=== PATIENT | male | born 1985 | race Caucasian/White ===

== ENCOUNTER 2020-06-17 07:58 | Emergency (ER) | payer BC, MEDICAID, OTHER ==
[2020-06-17] MEDS ORDERED: diphenhydrAMINE 50 MG/ML SDV IM ONE (08:05)
--- NOTE | 2020-06-17 08:40 | EDM.PDOC ---
ED HPI GENERAL MEDICAL PROBLEM - General Stated Complaint: HIVES Time Seen by Provider: 06/17/20 08:11 Source of Information: Reports: Patient History Limitations: Reports: No Limitations - History of Present Illness INITIAL COMMENTS - FREE TEXT/NARRATIVE: Pt presents with hives Woke up this AM with them No known exposures No SOB No difficulty swallowing Onset: Today, Sudden Duration: Hour(s):, Getting Worse Location: Reports: Generalized - Related Data Allergies Allergy/AdvReac Type Severity Reaction Status Date / Time No Known Allergies Allergy Verified 02/04/16 11:48 Home Meds: Home Meds . [No Known Home Meds] 02/04/16 [History] Past Medical History - Past Health History Medical/Surgical History: Denies Medical/Surgical History Social & Family History - Family History Family Medical History: Unobtainable - Caffeine Use Caffeine Use: Reports: Coffee, Soda - Living Situation & Occupation Living situation: Reports: with Significant Other Occupation: Employed ED ROS GENERAL - Review of Systems Review Of Systems: See Below HEENT: Reports: No Symptoms Respiratory: Reports: No Symptoms Cardiovascular: Reports: No Symptoms GI/Abdominal: Reports: No Symptoms Skin: Reports: Urticaria ED EXAM, GENERAL - Physical Exam Exam: See Below Exam Limited By: No Limitations General Appearance: Alert, WD/WN, Mild Distress Nose: Normal Inspection Throat/Mouth: Normal Oropharynx Neck: Supple Respiratory/Chest: Lungs Clear Cardiovascular: Regular Rate, Rhythm GI/Abdominal: Soft, Non-Tender Extremities: Normal Inspection Neurological: Alert, Oriented Skin Exam: Other (Urticaria throughout) Course - Orders/Labs/Meds Meds: Medications Discontinued Medications Generic Name Dose Route Start Last Admin Trade Name Sara PRN Reason Stop Dose Admin Diphenhydramine HCl 50 mg 06/17/20 08:05 06/17/20 08:12 Benadryl IM 06/17/20 08:06 50 mg ONETIME ONE Administration - Re-Assessments/Exams Free Text/Narrative Re-Assessment/Exam: 06/17/20 08:39 Pt given Benadryl 50 mg IM in ER with much improved symptoms Departure - Departure Time of Disposition: 08:40 Disposition: Home, Self-Care 01 Clinical Impression: Urticaria - Discharge Information *PRESCRIPTION DRUG MONITORING PROGRAM REVIEWED*: Not Applicable *COPY OF PRESCRIPTION DRUG MONITORING REPORT IN PATIENT PHILL: Not Applicable Instructions: Hives Forms: ED Return to Work/School Form Additional Instructions: Follow up in clinic
[2020-06-17 09:33] VITALS: BP 124/78; PULSE 66
== END 2020-06-17 08:45 | disposition home or self-care (01) ==
LOC: VM.ED 07:58
DX: L50.9 Urticaria, unspecified (principal)
CPT/HCPCS: 96372; 99282; 99283; J1200

== ENCOUNTER 2020-06-18 21:09 | Emergency (ER) | payer MEDICAID ==
--- NOTE | 2020-06-18 22:15 | EDM.PDOC ---
ED HPI GENERAL MEDICAL PROBLEM - General Stated Complaint: RASH ALL OVER BODY Time Seen by Provider: 06/18/20 21:09 Source of Information: Reports: Patient History Limitations: Reports: No Limitations - History of Present Illness INITIAL COMMENTS - FREE TEXT/NARRATIVE: Patient comes emergency department today for the second day in a row with complaints of a rash on his arms legs and feet. This patient was seen yesterday and was given Benadryl for possible allergic reaction. This patient for the past 3 days has had a very very itchy irritated rash on his legs abdomen and his extremities. He did recently receive a new bed at home although he stated a family member's house over the weekend and about 24 hours later he developed this very irritating itchy rash. He has no difficulty breathing. The Benadryl helps with the itching but the rash is not getting any better. NO COVID exposure no COVID symptoms. - Related Data Allergies Allergy/AdvReac Type Severity Reaction Status Date / Time No Known Allergies Allergy Verified 06/17/20 08:56 Home Meds: Home Meds Triamcinolone Acetonide [Triamcinolone Acetonide 0.1% Oint] 15 gm .XX QID PRN #1 tube 06/18/20 [Rx] hydrOXYzine HCL [hydrOXYzine] 25 mg PO Q6H PRN #12 tab 06/18/20 [Rx] Past Medical History - Past Health History Medical/Surgical History: Denies Medical/Surgical History Social & Family History - Family History Family Medical History: Unobtainable - Caffeine Use Caffeine Use: Reports: Coffee, Soda - Living Situation & Occupation Living situation: Reports: with Significant Other Occupation: Employed ED ROS GENERAL - Review of Systems Review Of Systems: Comprehensive ROS is negative, except as noted in HPI. ED EXAM, SKIN/RASH Exam: See Below Exam Limited By: No Limitations General Appearance: Alert, WD/WN, No Apparent Distress Throat/Mouth: Normal Inspection, Normal Oropharynx, No Airway Compromise Head: Atraumatic, Normocephalic Neck: Normal Inspection Respiratory/Chest: No Respiratory Distress, Lungs Clear, Normal Breath Sounds, Chest Non-Tender Cardiovascular: Normal Peripheral Pulses, Regular Rate, Rhythm Peripheral Pulses: 2+: Radial (L), Radial (R), Posterior Tibial (L), Posterior Tibial (R), Dorsalis Pedis (L), Dorsalis Pedis (R) GI/Abdominal: Normal Bowel Sounds, Soft, Non-Tender, Other (see skin description) (Male) Exam: Deferred Rectal (Males) Exam: Deferred Back Exam: No: Normal Inspection (see skin description) Extremities: Normal Inspection (see skin description otherwise normal. ) Neurological: Alert, Oriented, No Motor/Sensory Deficits Psychiatric: Normal Affect Skin: Rash (The patient has individual papules with central crusting and some excoriation on his distal forearms his distal extremities and on his abdomen. On his abdomen there is a perfect line just above where the belt line would be the rash does not extend under the belt line. There is no hives or urticaria. There is no secondary infection. They are nonconfluence and individualized with central crusting consistent with some type of insect bite.) Characteristics: Papular Course - Orders/Labs/Meds Meds: Medications Discontinued Medications Generic Name Dose Route Start Last Admin Trade Name Freq PRN Reason Stop Dose Admin Hydroxyzine HCl 50 mg 06/18/20 22:16 Atarax PO 06/18/20 22:17 ONETIME ONE - Re-Assessments/Exams Free Text/Narrative Re-Assessment/Exam: 06/18/20 22:38 This really does not appear to be any allergic type reaction. There is no. These are nonconfluent papules with central crusting consistent with a bite. And with the specific line along the abdomen where the close were this is more consistent for bedbugs. We will give him some hydroxyzine as well as some triamcinolone cream. He is comfortable with this plan his questions were answered. Departure - Departure Time of Disposition: 21:10 Disposition: Home, Self-Care 01 Clinical Impression: Bed bug bite Qualifiers: Encounter type: initial encounter Qualified Code(s): W57.XXXA - Bitten or stung by nonvenomous insect and other nonvenomous arthropods, initial encounter - Discharge Information Instructions: Insect Bite, Adult, [id number] Additional Instructions: Hydroxyzine 50mg every 6-8hrs as needed for itching. RX to [facility]. Caution sedation Triamcinolone cream. 0.1% apply 4 times a day as needed for itching Discontinue at shortest time able. Rx to [facility]. Return to the ED if new or worsening symptoms. Follow up with PCP if any concerns. - Assessment/Plan Assessment:: Bedbug bites. NO secondary infection. Plan: Hydroxyzine 50mg every 6-8hrs as needed for itching. RX to [facility]. Caution sedation Triamcinolone cream. 0.1% apply 4 times a day as needed for itching Discontinue at shortest time able. Rx to [facility]. Return to the ED if new or worsening symptoms. Follow up with PCP if any concerns.
[2020-06-18] MEDS ORDERED: hydrOXYzine HCl 25 MG Tab PO ONE (22:16)
[2020-06-19 06:21] VITALS: BP 122/71; PULSE 70
== END 2020-06-18 22:29 | disposition home or self-care (01) ==
LOC: VM.ED 21:09
DX: S50.862A Insect bite (nonvenomous) of left forearm, initial encounter (principal); S50.861A Insect bite (nonvenomous) of right forearm, initial encounter; S30.861A Insect bite (nonvenomous) of abdominal wall, initial encounter; W57.XXXA Bitten or stung by nonvenomous insect and other nonvenomous arthropods, initial encounter
CPT/HCPCS: 99282; 99283; A9270-GY

== ENCOUNTER 2020-08-19 14:59 | Emergency (ER) | payer MEDICAID, OTHER ==
[2020-08-19] MEDS ORDERED: Orphenadrine 60 MG/2 ML Inj IM ONE (15:19)
[2020-08-19] MEDS ORDERED: Ketorolac 30 MG/ML SDV IM ONE (15:20)
[2020-08-19 16:06] VITALS: BP 112/68; PULSE 54
--- NOTE | 2020-08-19 20:37 | EDM.PDOC ---
ED HPI GENERAL MEDICAL PROBLEM - General Chief Complaint: Back Pain or Injury Stated Complaint: BACK PAIN Time Seen by Provider: 08/19/20 15:24 Source of Information: Reports: Patient History Limitations: Reports: No Limitations - History of Present Illness INITIAL COMMENTS - FREE TEXT/NARRATIVE: Pt. presents to ER with complaints of severe lower abdominal pain. Denies any trauma to the area. No numbness/tingling in extremities. He denies any saddle anesthesia or numbness/tingling to buttocks. He states that he has had problems with intermittent low back pain, but states that today the discomfort is much worse. Pt. denies any fever or chills. Denies recent trauma. Onset: Today Location: Reports: Back Severity: Severe Bilateral Posterior Back Pain Score (Numeric/FACES): 10 - Related Data Allergies Allergy/AdvReac Type Severity Reaction Status Date / Time No Known Allergies Allergy Verified 08/19/20 15:20 Home Meds: Home Meds Triamcinolone Acetonide [Triamcinolone Acetonide 0.1% Oint] 15 gm .XX QID PRN #1 tube 06/18/20 [Rx] hydrOXYzine HCL [hydrOXYzine] 25 mg PO Q6H PRN #12 tab 06/18/20 [Rx] Past Medical History - Past Health History Medical/Surgical History: Denies Medical/Surgical History - Past Surgical History GI Surgical History: Reports: Appendectomy Social & Family History - Family History Family Medical History: Unobtainable - Tobacco Use Tobacco Use Status *Q: Current Every Day Tobacco User Years of Tobacco use: 10 Packs/Tins Daily: 0.5 - Caffeine Use Caffeine Use: Reports: Coffee, Soda - Recreational Drug Use Recreational Drug Use: Yes Recreational Drug Type: Reports: Marijuana/Hashish - Living Situation & Occupation Living situation: Reports: with Significant Other Occupation: Employed ED ROS GENERAL - Review of Systems Review Of Systems: Comprehensive ROS is negative, except as noted in HPI. ED EXAM, GENERAL - Physical Exam Exam: See Below Exam Limited By: No Limitations General Appearance: Alert, WD/WN, No Apparent Distress Back Exam: Normal Inspection, Decreased Range of Motion, Muscle Spasm, Paraspinal Tenderness, Vertebral Tenderness Extremities: Normal Inspection, Normal Range of Motion, Non-Tender, No Pedal Edema, Normal Capillary Refill Neurological: Alert, Oriented, CN II-XII Intact, Normal Reflexes, No Motor/Sensory Deficits, Other (No foot drop) Course - Vital Signs Last Recorded V/S: Last Vital Signs Temp 37.2 C 08/19/20 15:19 Pulse 54 L 08/19/20 15:57 Resp 16 08/19/20 15:57 BP 112/68 08/19/20 15:57 Pulse Ox 98 08/19/20 15:57 - Orders/Labs/Meds Meds: Medications Discontinued Medications Generic Name Dose Route Start Last Admin Trade Name Sara PRN Reason Stop Dose Admin Ketorolac Tromethamine 30 mg 08/19/20 15:20 08/19/20 15:28 Toradol IM 08/19/20 15:21 30 mg ONETIME ONE Administration Orphenadrine Citrate 60 mg 08/19/20 15:19 08/19/20 15:30 Norflex IM 08/19/20 15:20 60 mg ONETIME ONE Administration Departure - Departure Time of Disposition: 16:30 Disposition: Home, Self-Care 01 Clinical Impression: Low back pain - Discharge Information Instructions: Cyclobenzaprine tablets, Acute Back Pain, Adult, Naproxen and naproxen sodium oral immediate-release tablets, Low Back Sprain or Strain Rehab- [facility] Referrals: Lucinda Lujan MD [Primary Care Provider] - Forms: ED Department Discharge Additional Instructions: Off work today and tomorrow if needed. Naproxen 500mg 1 twice daily as needed for pain Flexeril 10mg 1 three times daily as needed for muscle spasm I gave to a sheet with some exercises you can try if you wish. Drink plenty of fluids. Try to walk around as much as possible. Do not lie in bed for extended periods of time. Recheck in clinic in 10-14 days Sepsis Event Note (ED) - Evaluation Sepsis Screening Result: No Definite Risk - Focused Exam Vital Signs: Vital Signs Temp Pulse Resp BP Pulse Ox 08/19/20 15:57 54 L 16 112/68 98 08/19/20 15:19 37.2 C 66 18 136/57 L 97 - Assessment/Plan Plan: Off work today and tomorrow if needed. Naproxen 500mg 1 twice daily as needed for pain Flexeril 10mg 1 three times daily as needed for muscle spasm I gave to a sheet with some exercises you can try if you wish. Drink plenty of fluids. Try to walk around as much as possible. Do not lie in bed for extended periods of time. Recheck in clinic in 10-14 days
== END 2020-08-19 15:59 | disposition home or self-care (01) ==
LOC: VM.ED 14:59
DX: M54.5 Low back pain (principal); R10.30 Lower abdominal pain, unspecified; F17.210 Nicotine dependence, cigarettes, uncomplicated; Z90.49 Acquired absence of other specified parts of digestive tract
CPT/HCPCS: 96372; 99283; 99284; J1885; J2360

== ENCOUNTER 2021-01-22 17:23 | Emergency (ER) | payer MEDICAID, OTHER ==
[2021-01-22] MEDS: GI Cocktail Oral Solution 30 ML PO ONE (17:53)
[2021-01-22 18:26] VITALS: BP 110/72; PULSE 68
[2021-01-22] MEDS: predniSONE 20 MG Tab PO STA (18:30)
--- NOTE | 2021-01-22 18:32 | EDM.PDOC ---
ED HPI GENERAL MEDICAL PROBLEM - General Chief Complaint: ENT Problem Stated Complaint: CAN'T SWALLOW Time Seen by Provider: 01/22/21 17:40 Source of Information: Reports: Patient History Limitations: Reports: No Limitations - History of Present Illness INITIAL COMMENTS - FREE TEXT/NARRATIVE: Patient comes emergency department today with complaints of sore throat. For the past 2 days the patient has had a sore throat that is slowly gotten worse. Is quite painful when he swallows. He has no difficulty with swallowing it is just painful. He has no drooling. No difficulty breathing. He has had quite a bit of sinus congestion pressure drainage. No pain in his ears. No fever no chills. No cough or congestion. No weakness dizziness lightheadedness. No loss of taste or smell. No malaise fatigue myalgias. No abdominal pain nausea or vomiting. No rash. No Covid exposure Sore Throat Pain Score (Numeric/FACES): 6 - Related Data Allergies Allergy/AdvReac Type Severity Reaction Status Date / Time No Known Allergies Allergy Verified 01/22/21 18:00 Home Meds: Home Meds predniSONE [Prednisone] 40 mg PO DAILY 4 Days #8 tablet 01/22/21 [Rx] Past Medical History - Past Health History Medical/Surgical History: Denies Medical/Surgical History - Past Surgical History GI Surgical History: Reports: Appendectomy Social & Family History - Family History Family Medical History: Unobtainable - Caffeine Use Caffeine Use: Reports: Coffee, Soda - Living Situation & Occupation Living situation: Reports: with Significant Other Occupation: Employed ED ROS ENT - Review of Systems Review Of Systems: Comprehensive ROS is negative, except as noted in HPI. ED EXAM, ENT - Physical Exam Exam: See Below Exam Limited By: No Limitations General Appearance: Alert, WD/WN, No Apparent Distress Eye Exam: Bilateral Eye: EOMI, PERRL Ears: Normal External Exam, Normal Canal, Normal TMs Nose: Nasal Discharge (Clear rhinorrhea bilaterally.), Injected Turbinates (Turbinates bilaterally are quite erythematous swollen boggy.). No: Active Bleeding, Dried Blood Mouth/Throat: Normal Gums, Normal Lips, Normal Teeth. No: Normal Oropharynx (Tonsils are not enlarged. There is no induration swelling or exudate of the tonsils. He has some mild erythema of the posterior pharynx with pink salmon- colored vesicles and cobblestoning consistent with postnasal drip. There is no exudate. There is no drooling. Uvula is midline. ), Drooling, Throat Swelling, Tongue Swelling, Tonsillar Exudates, Tonsillar Swelling, Uvular Deviation, Uvular Edema Head: Atraumatic, Normocephalic Neck: Normal Inspection, Supple, Non-Tender, Full Range of Motion. No: Lymphadenopathy (L), Lymphadenopathy (R) Respiratory/Chest: No Respiratory Distress, Lungs Clear, Chest Non-Tender Cardiovascular: Normal Peripheral Pulses, Regular Rate, Rhythm Extremities: Normal Inspection Neurological: Alert, Oriented, CN II-XII Intact, Normal Cognition, No Motor/Sensory Deficits Psychiatric: Normal Affect, Normal Mood Skin: Warm, Dry, Intact, Normal Color, No Rash Course - Vital Signs Last Recorded V/S: Last Vital Signs Temp 98.1 F 01/22/21 17:40 Pulse 68 01/22/21 17:40 Resp 14 01/22/21 17:40 BP 110/72 01/22/21 17:40 Pulse Ox 100 01/22/21 17:40 - Orders/Labs/Meds Labs: Laboratory Tests 01/22/21 Range/Units 17:38 Group A Strep (PCR) Not detected (NOT DETECT) Meds: Medications Discontinued Medications Generic Name Dose Route Start Last Admin Trade Name Sara PRN Reason Stop Dose Admin Al Hydroxide/Mg Hydroxide 30 ml 01/22/21 17:49 01/22/21 17:53 Gi Cocktail Oral Solution 30 Ml PO 01/22/21 17:50 30 ml ONETIME ONE Administration Prednisone 40 mg 01/22/21 18:21 01/22/21 18:30 Prednisone 20 Mg Tab PO 01/22/21 18:22 40 mg NOW STA Administration - Re-Assessments/Exams Free Text/Narrative Re-Assessment/Exam: 01/23/21 00:11 Strep screen negative. GI COcktail gargle and swallow with improvement of pain. The patient strep screen is negative. He does not appear to have pharyngitis as well. He has quite a bit of sinus congestion and drainage and this is most likely what is causing his sore throat. We will treat his sinuses with nasal saline rinses Flonase as well as steroids. He can use [id number] sore throat sprays salt water gargles and/or Sucrets lozenges for pain. He is comfortable with this plan his questions were answered. Departure - Departure Time of Disposition: 18:23 Disposition: Home, Self-Care 01 Clinical Impression: Sore throat Sinusitis, acute Qualifiers: Sinusitis location: unspecified location Recurrence: not specified as recurrent Qualified Code(s): J01.90 - Acute sinusitis, unspecified - Discharge Information Prescriptions: predniSONE [Prednisone] 40 mg PO DAILY 4 Days #8 tablet Instructions: Sinusitis, Adult, [id number], How to Perform a Sinus Rinse, [id number], Sore Throat, [id number]-[id number] Referrals: Lucinda Lujan MD [Primary Care Provider] - Forms: ED Department Discharge, ED Return to Work/School Form Additional Instructions: OTC nasal rinse twice daily with some product like Neti Pot 10 minutes later Flonase nasal spray 1 spray each nostril twice daily for a week and then 1 spray each nostril daily. OTC. Prednisone 40mg daily for the next 5 days first dose given in the ED. Rx sent to [facility]. OTC sore throat spray or lozenges like Sucrets. Tylenol and or ibuprofen for pain. Return to the ED if new or worsening symptoms. Follow up with PCP in the next 4-6 days if not improving sooner if worse. Sepsis Event Note (ED) - Focused Exam Vital Signs: Vital Signs Temp Pulse Resp BP Pulse Ox 01/22/21 17:40 98.1 F 68 14 110/72 100
== END 2021-01-22 18:38 | disposition home or self-care (01) ==
LOC: VM.ED 17:23
DX: J02.9 Acute pharyngitis, unspecified (principal); J01.90 Acute sinusitis, unspecified
CPT/HCPCS: 87651; 99283; A9270; J7512

== ENCOUNTER 2021-05-21 16:30 | Emergency (ER) | payer MEDICAID, OTHER ==
--- NOTE | 2021-05-21 16:47 | EDM.PDOC ---
ED HPI GENERAL MEDICAL PROBLEM - General Chief Complaint: General Stated Complaint: rash Time Seen by Provider: 05/21/21 16:30 Source of Information: Reports: Patient History Limitations: Reports: No Limitations - History of Present Illness INITIAL COMMENTS - FREE TEXT/NARRATIVE: 35-year-old white male that presents with ongoing complaints of bedbug bites to the left side of his chest wall and left arm x4 days. Patient states he has been staying in a hotel secondary to work and has been bitten a couple times before and now is got it again last time was several months ago. He says he is allergic to it which causes them to swell up and the itching to be so intense he cannot sleep. He has no other complaints at this time states he feels fine just due to the bites and the itching is his only complaint. Duration: Day(s): Location: Reports: Chest Associated Symptoms: Reports: Rash - Related Data Allergies Allergy/AdvReac Type Severity Reaction Status Date / Time No Known Allergies Allergy Verified 05/21/21 16:46 Home Meds: Home Meds . [No Known Home Meds] 05/21/21 [History] Past Medical History - Past Health History Medical/Surgical History: Denies Medical/Surgical History - Past Surgical History GI Surgical History: Reports: Appendectomy Social & Family History - Family History Family Medical History: Unobtainable - Caffeine Use Caffeine Use: Reports: Coffee, Soda - Living Situation & Occupation Living situation: Reports: with Significant Other Occupation: Employed ED ROS GENERAL - Review of Systems Review Of Systems: See Below Constitutional: Reports: No Symptoms HEENT: Reports: No Symptoms Respiratory: Reports: No Symptoms Cardiovascular: Reports: No Symptoms Endocrine: Reports: No Symptoms GI/Abdominal: Reports: No Symptoms : Reports: No Symptoms Musculoskeletal: Reports: No Symptoms Skin: Reports: Pruritis, Rash Neurological: Reports: No Symptoms Psychiatric: Reports: No Symptoms Hematologic/Lymphatic: Reports: No Symptoms Immunologic: Reports: No Symptoms ED EXAM, SKIN/RASH Exam: See Below Exam Limited By: No Limitations General Appearance: Alert, WD/WN, No Apparent Distress Throat/Mouth: Normal Voice, No Airway Compromise Head: Atraumatic, Normocephalic Neck: Normal Inspection, Supple, Non-Tender, Full Range of Motion Respiratory/Chest: No Respiratory Distress Extremities: Normal Inspection, Normal Range of Motion, Non-Tender Neurological: Alert, Oriented, CN II-XII Intact, Normal Cognition, Normal Gait Psychiatric: Normal Affect, Normal Mood Skin: Warm, Dry, Intact, Normal Color, Other (There is noted erythematous vesicular centralized nodules on the left side of the chest wall and lateral ribs and also on the back of the left arm in a linear pattern there is no signs or symptoms any secondary infections or cellulitis there is no axillary adenopathy noted). No: No Rash Course - Vital Signs Text/Narrative:: Patient was given permethrin 5% cream to apply area 3 times daily x1 week with instructions he may wait a week and then reapply after 7 days if need be he was instructed to clean all bedding at home follow-up with his primary care provider if anything changes or gets worse Departure - Departure Time of Disposition: 16:45 Disposition: Home, Self-Care 01 Condition: Good Clinical Impression: Skin rash - Discharge Information Instructions: Rash, Adult, [id number] Forms: ED Department Discharge Additional Instructions: Use the cream as directed apply to the area 3 times a day for 7 days you may repeat the dose after a 7-day break if need be for another 7 days. Follow-up with your primary care provider in the next 3 to 4 days if needed Return to the emergency room if anything changes or gets worse - Problem List & Annotations (1) Bed bug bite SNOMED Code(s): 239710482 Code(s): W57.XXXA - BIT/STUNG BY NONVENOM INSECT & OTH NONVENOM ARTHROPODS, INIT Status: Acute Qualifiers: Encounter type: initial encounter Qualified Code(s): W57.XXXA - Bitten or stung by nonvenomous insect and other nonvenomous arthropods, initial encounter (2) Skin rash SNOMED Code(s): 353503714, 620568973 Code(s): R21 - RASH AND OTHER NONSPECIFIC SKIN ERUPTION Status: Acute
[2021-05-21 16:58] VITALS: BP 137/62; PULSE 86
== END 2021-05-21 16:57 | disposition home or self-care (01) ==
LOC: VM.ED 16:30
DX: R21 Rash and other nonspecific skin eruption (principal)
CPT/HCPCS: 99282; 99283